=== PATIENT | female | born 1990 | race Hispanic/Latino ===

== ENCOUNTER 2024-10-29 07:14 | Emergency (ER) | payer BC ==
[~2024-10-29] VITALS: Ht 61 cm; Wt 74.8 kg
[~2024-10-29 07:14] MED LIST: CYCL10TA16 PO
[2024-10-29 07:56] LABS: RAPID GROUP A STREP negative (NEGATIVE)
[2024-10-29 08:06] LABS: COVID19 (SARS ANTIGEN RAPID) PRESUMPTIVE NEGATIVE (NEGATIVE); INFLUENZA TYPE A Negative For Type A (NEGATIVE); INFLUENZA TYPE B Negative For Type B (NEGATIVE)
[2024-10-29] MEDS: DiphenhydrAMINE HCL 50 MG/ML VIAL IV ONE (09:16)
[2024-10-29] MEDS: dexaMETHasone SOD PHOSPHATE 4 MG/ML 1ML VIAL IV ONE (09:16)
[2024-10-29] MEDS: PROCHLORPERAZINE 10MG/2ML INJ IV ONE (09:16)
[2024-10-29] MEDS: ketOROlac 15MG/ML VIAL (15MG/ML) IV ONE (09:16)
[2024-10-29] MEDS ORDERED: FIORIT PO (09:30)
[2024-10-29] MEDS ORDERED: SUMA25TA9 PO (09:30)
--- NOTE | 2024-10-29 09:33 | ERN ---
General Chief Complaint: Cough Stated Complaint: COUGH/ HEADACHE Time Seen by MD: 07:44 History of Present Illness Initial Comments 34F presents for headache. Patient reports that over the last year so she gets almost monthly severe headaches. They are mostly right-sided pounding throbbing type headaches that last a few days. Photophobia. She has likes to sit in a dark room a during these episodes. She reports for the last couple of days she has had a little bit of nasal congestion in his sore throat without fever, which she thinks triggered another headache. She has never been diagnosed with migraines but believes these are migraines. She has been taking [id number] medications with minimal relief. No focal neurologic deficits. No fevers. No neck stiffness. She attempted to make an appointment with a primary doctor but there was not an appointment available for three weeks. Allergies: Coded Allergies: No Known Drug Allergies (Unverified Allergy, Unknown, 03/06/15) Home Meds Active Scripts Cyclobenzaprine HCl (Flexeril) 10 Mg Tab, 10 MG PO TID for muscle sstiffness, #14 TAB 0 Refills Prov:OFELIA BROWN JUDGE 08/16/24 Past Medical History Past Medical History: High Cholesterol Medical History Other: WEARS HEARING AIDS Past Surgical History: Tonsillectomy, BTL Female( History) LMP: Oct 11, 2024 ROS Dictation CONSTITUTIONAL: No chills, no fever, no weakness, no diaphoresis, no malaise. HEAD/FACE: No signs of trauma. EENT: No eye pain, no blurred vision, no tearing, no double vision, no ear pain, no ear discharge, no nose pain, no nasal congestion, no throat pain, no throat swelling, no mouth pain. RESPIRATORY: No cough, no orthopnea, no SOB, no stridor, no wheezing. CARDIOVASCULAR: No chest pain, no edema, no palpitations, no syncope. GASTROINTESTINAL/ABDOMINAL: No abdominal pain, no constipation, no diarrhea, no nausea, no vomiting. GENITOURINARY: No abnormal discharge, no dysuria, no frequent urination, no hematuria. No complaints of pain in the genitals. MUSCULOSKELETAL: No back pain, no gout, no joint pain, no joint swelling, no muscle pain, no muscle stiffness, no neck pain. INTEGUMENTARY: No change in color, no change in hair/nails, no dryness, no lesion, no lumps, no rash. NEUROLOGICAL/PSYCH: Headache HEMATOLOGIC/LYMPHATIC: Not anemic, no history of blood clots, no apparent bleeding, no bruising, glands not swollen. All Systems Negative, Except as Noted. Physical Exam Physical Exam Dictation VITAL SIGNS: Reviewed. GENERAL APPEARANCE: Alert, oriented x3, no acute distress. HEAD AND FACE: Non-traumatic. EYES: PERRL, pink conjunctivas, eyelid no trauma, anterior chamber clear. EARS: Pinnas intact and no signs of trauma or erythema. Ear canals clear and no discharge. TMs no erythema. NOSE: No discharge, no bleeding. OROPHARYNX: Mouth normal, teeth no caries, tongue pink. Pharynx clear, no erythema. Tonsils no exudates, no abscesses noted. Mucous membrane moist. NECK: Supple, non-tender, no thyromegaly, no masses, no JVD, no bruits. BREAST: Deferred. CHEST: No tenderness, no crepitus, no paradoxical movement, no retractions. LUNGS: Clear, well-ventilated, symmetric, no rales, no wheezing, no rhonchi, no stridor, good breath sounds bilaterally. HEART: Regular rate, regular rhythm, no murmur, no gallops. VASCULAR: No peripheral edema. ABDOMEN: Soft, positive bowel sounds, nondistended, no guarding, nontender, no rebound, no masses no hepatomegaly, no splenomegaly, no Edmonds's sign, no hernias. RECTAL: Deferred. GENITAL: Deferred. NEUROLOGICAL: Normal speech, gross motor function intact, gross sensory funct ion intact. MUSCULOSKELETAL: Neck nontender, full range of motion, back nontender, full range of motion. EXTREMITIES: Nontender, full range of motion. SKIN: Color pink, dry, no turgor, no rash, no lacerations, no abrasions, no contusions. LYMPHATICS: Deferred. Results Laboratory and Microbiology Lab and Micro Result Laboratory Tests Test 10/29/24 07:22 Influenza Type A Antigen Negative For Type A Influenza Type B Antigen Negative For Type B SARS-CoV-2 Antigen (Rapid) PRESUMPTIVE NEGATIVE Group A Streptococcus Rapid negative (NEGATIVE) MDM CC: Headache Historian: patient Comorbidities: DLD Limitations by social determinates of health: none Ddx: Migraine, flu like illness, strep throat, viral uri, etc. VSS Flu, SARS, strep negative. Chest x-ray independently interpreted by me shows no cardiomegaly pleural effusions or focal infiltrates. Treatment in ED: IV fluids, IV Compazine, IV Benadryl, IV Toradol, IV dexamethasone for headache cocktail. Symptoms most consistent with a migraine. Likely triggered by viral URI. No signs of sepsis, respiratory distress, focal neurologic deficits concerning for significant brain abnormality, meningitis or other life-threatening pathology. We will discharge with Fioricet & immitrex for her migraines. ED Course Orders Procedure Category Date Status Time Covid19 (Sars Antigen LAB 10/29/24 Complete Rapid) 07:20 Influenza Type A & B, LAB 10/29/24 Complete Rapid 07:20 Rapid (Group A Strep) LAB 10/29/24 Complete 07:20 Chest 1vw RAD 10/29/24 Taken 07:44 Lactated Ringers PHA 10/29/24 In Process 1000ml (Lactated 09:30 Ketorolac PHA 10/29/24 In Process Tromethamine 15mg/Ml 09:30 Prochlorperazine PHA 10/29/24 In Process 10mg/2ml Inj 09:30 Diphenhydramine Hcl PHA 10/29/24 In Process (Benadryl Inj) 09:30 Dexamethasone 4mg/Ml PHA 10/29/24 In Process 1ml Vial (Dexametha 09:30 Current Medications Medications (Trade) Dose Ordered Sig/Mir Route PRN Reason Start Time Stop Time Status Last Admin Dose Admin Dexamethasone Sodium Phosphate (dexaMETHasone 4MG/ML 1ML VIAL) 4 mg ONCE ONCE IV 10/29/24 09:30 10/29/24 09:31 10/29/24 09:16 Diphenhydramine HCl (BENAdryl INJ) 25 mg ONCE ONCE IV 10/29/24 09:30 10/29/24 09:31 10/29/24 09:16 Ketorolac Tromethamine (toRADol) 15 mg ONCE ONCE IV 10/29/24 09:30 10/29/24 09:31 10/29/24 09:16 Lactated Ringer's 1,000 ml @ 0 mls/hr ONCE ONCE IV 10/29/24 09:30 10/29/24 09:31 Prochlorperazine Edisylate (Compazine 10mg/ 2ml Inj) 5 mg ONCE ONCE IV 10/29/24 09:30 10/29/24 09:31 10/29/24 09:16 Vital Signs Date Time Temp Pulse Resp B/P (MAP) Pulse Ox O2 Delivery O2 Flow Rate FiO2 10/29/24 07:28 98.8 77 18 144/89 99 Room Air* 0 21 10/29/24 07:15 98.8 77 16 144/95 Room Air 5.0 DX & DISP Disposition: Discharge Departure Impression: Primary Impression: Migraine headache Additional Impression: Viral URI Condition: Stable Scripts Sumatriptan Succinate (Sumatriptan Succinate) 25 Mg Tablet 1 TAB PO BID for headache, #10 TAB 20 Refills Prov: KELLI ESCAMILLA DO 10/29/24 Butalb/Acetaminophen/Caffeine (Fioricet) 50 Mg-325 Mg-40 Mg Tab 2 TAB PO QID PRN for headache for 10 Days, #30 TAB Prov: KELLI ESCAMILLA DO 10/29/24 Additional Instructions: Your symptoms are most consistent with a migraine headache. This may have been triggered by a viral upper respiratory infection, or the common cold. Your flu and COVID swabs were negative. Your chest x-ray is clear. Your vital signs are stable. Regarding your headaches, they are likely migraines based on your description. I have prescribed two medications: Sumatriptan, and Fioricet. You can take two tabs of Fioricet every 6 hours as needed for migraines. Sumatriptan is an abortive headache medication that may reduce the length and severity of migraines. Take one tab at the onset of migraines. You may repeated once in 2 hours if the migraine persists. Do not take more than two tabs per day. It is important to start this medication as soon as the migraine starts. Do not wait until he gets really bad. Avoid using this medication more than nine days per month. I recommend that you follow up with Dr. Stratton regarding your headaches. Please return to the emergency department as needed. Referrals: BRANDEE STRATTON (PCP) KELLI ESCAMILLA DO Oct 29, 2024 09:33
[2024-10-29 09:53] VITALS: BP 136/78; PULSE 78; RESP 16; TEMP 98.1; O2SAT 99
--- NOTE | 2024-10-29 09:55 | NUR ---
PT STABLE NO DISTRESS VITALS WNL STATES HEAD IS BETTER NOW PT GIVEN INSTRUCTIONS FOR HOME BY DR ESCAMILLA VERBALIZED UNDERSTANDING. PT IV REMOVED CATHETER INTACT, PT DRIVEN HOME BY .
[2024-10-29] MEDS: LACTATED RINGERS 1000ML 1,000 ML IV ONE (09:59)
--- NOTE | 2024-10-29 10:20 | HMCIMG ---
CHEST 1VW HISTORY: Cough COMPARISON: None FINDINGS: A frontal projection of the chest was obtained. No acute pulmonary infiltrates is seen. The heart is normal in size. Prominent interstitial markings are seen. No evidence of aortic calcification is seen. IMPRESSION: 1. No acute pulmonary infiltrate is seen.
== END 2024-10-29 10:35 | disposition home or self-care (01) ==
LOC: EDH 07:14
DX: G43.909 Migraine, unspecified, not intractable, without status migrainosus (principal); J06.9 Acute upper respiratory infection, unspecified; B97.89 Other viral agents as the cause of diseases classified elsewhere; E78.00 Pure hypercholesterolemia, unspecified; Z90.89 Acquired absence of other organs; Z98.51 Tubal ligation status; Z20.822 Contact with and (suspected) exposure to COVID-19
CPT/HCPCS: 99284; 96374; 96375; 71045; 96361; 87426; 87880; 87804 ×2; J1100; J1885; J7120; J1200; J0780